=== PATIENT | male | born 1950 | race Caucasian/White ===

== ENCOUNTER → 2017-03-29 | Outpatient (CLI) | payer MEDICARE, OTHER | LOC: KOH-I 03-26 08:00 | DX: M81.0 Age-related osteoporosis without current pathological fracture (principal); I10 Essential (primary) hypertension; Z82.49 Family history of ischemic heart disease and other diseases of the circulatory system | CPT/HCPCS: 76706-PO; 77080 ==

== ENCOUNTER → 2022-07-15 | Day surgery (SDC) | payer MEDICARE, OTHER ==
[~2022-07-15] VITALS: Ht 182.9 cm; Wt 128.8 kg
[~2022-07-15] MED LIST: ASPIRIN81 MG PO; DAILY VALUE1 EACH PO; HYDROCHLOROTHIA25 MG PO; LOPID600 MG PO; METFORMIN HCL1000 M1 PO; METOPROLOL TART25 MG PO; SINGULAIR10 MG PO
== END | disposition home or self-care (01) ==
LOC: OR 07:02
DX: K57.30 Diverticulosis of large intestine without perforation or abscess without bleeding (principal); K64.1 Second degree hemorrhoids; K63.89 Other specified diseases of intestine; K31.9 Disease of stomach and duodenum, unspecified; E66.01 Morbid (severe) obesity due to excess calories; I10 Essential (primary) hypertension; Z68.41 Body mass index [BMI] 40.0-44.9, adult; Z79.82 Long term (current) use of aspirin; Z79.84 Long term (current) use of oral hypoglycemic drugs; Z79.899 Other long term (current) drug therapy
CPT/HCPCS: J2704; J7040